=== PATIENT | male | born 1990 | race Caucasian/White ===

== ENCOUNTER 2017-05-21 20:01 | Emergency (ER) | payer OTHER ==
--- NOTE | 2017-05-21 20:31 | ED MAR SUMMARY ---
..... Medication Administration Record [facility] [address] [place], [place] [id number] Patient: VINOD GONZALEZReji Gil Visit ID: [id number] 27y, M Weight: (not available) Height/Length: (not available) BMI: (not available) ALLERGIES:
--- NOTE | 2017-05-21 20:31 | ED MAR SUMMARY ---
..... Medication Administration Record [facility] [address] [place], [place] [id number] Patient: VINOD GONZALEZReji Gil Visit ID: [id number] 27y, M Weight: (not available) Height/Length: (not available) BMI: (not available) ALLERGIES:
--- NOTE | 2017-05-21 20:31 | ED MED RECONCILIATION SUMMARY ---
Patient: TWYLACHARISSAVINOD DEVRIESS Louise Medication Reconciliation Report [facility] VisitID: [id number] [address] [place] [address] 27y, M Registration Date/Time: 05/21/2017 Weight: (not available) Height/Length: (not available) BMI: (not available) ALLERGIES: The patient's Home Medications are listed below: Not obtained. The source(s) of the original Home Medication information: Not obtained. The following Medications were given to the patient in the Emergency Department: None. The following Medications were prescribed to the patient: None.
--- NOTE | 2017-05-21 20:31 | ED NURSING NOTES ---
Clinical Report - Nurses [facility] [place] [address] 05/21/2017 20:01 Patient: CARLITOS GONZALEZ DISPOSITION / DISCHARGE The patient left the Emergency Department before triage; patient was unaccompanied. The patient appears to be alert, oriented x4, coherent and in no acute distress. He stated is leaving the ED due to personal reasons (states he feels a lot better and felt jaw poped back in). Notified the charge nurse of patient departure. Prior to leaving the ED, he was advised to return if needed. He was informed of the risks of leaving and verbalized understanding of these risks. He left the Emergency Department ambulatory and via private vehicle. --20:29 Herbert Landa R.N. Departure time: 20:30. --20:30 Herbert Landa R.N. Locked/Released at 05/21/2017 20:30 by Herbert Landa R.N.
--- NOTE | 2017-05-21 20:31 | ED NURSING NOTES ---
Clinical Report - Nurses [facility] [place] [address] 05/21/2017 20:01 Patient: CARLITOS GONZALEZ DISPOSITION / DISCHARGE The patient left the Emergency Department before triage; patient was unaccompanied. The patient appears to be alert, oriented x4, coherent and in no acute distress. He stated is leaving the ED due to personal reasons (states he feels a lot better and felt jaw poped back in). Notified the charge nurse of patient departure. Prior to leaving the ED, he was advised to return if needed. He was informed of the risks of leaving and verbalized understanding of these risks. He left the Emergency Department ambulatory and via private vehicle. --20:29 Herbert Landa R.N. Departure time: 20:30. --20:30 Herbert Lnada R.N. Locked/Released at 05/21/2017 20:30 by Herbert Landa R.N.
--- NOTE | 2017-05-21 20:31 | ED MED RECONCILIATION SUMMARY ---
Patient: TWYLACHARISSAVINOD DEVRIESS Louise Medication Reconciliation Report [facility] VisitID: [id number] [address] [place] [address] 27y, M Registration Date/Time: 05/21/2017 Weight: (not available) Height/Length: (not available) BMI: (not available) ALLERGIES: The patient's Home Medications are listed below: Not obtained. The source(s) of the original Home Medication information: Not obtained. The following Medications were given to the patient in the Emergency Department: None. The following Medications were prescribed to the patient: None.
== END 2017-05-21 20:26 | disposition left against medical advice (07) ==
LOC: ED SRH 20:01
DX: Z53.21 Procedure and treatment not carried out due to patient leaving prior to being seen by health care provider (principal)